=== PATIENT | female | born 1995 | race Two or more races ===

== ENCOUNTER 2021-09-27 08:45 | Outpatient (CLI) | payer OTHER | END 2021-09-27 08:49 | disposition home or self-care (01) | LOC: LAB 08:45 | DX: E03.8 Other specified hypothyroidism (principal); C73 Malignant neoplasm of thyroid gland ==

== ENCOUNTER 2022-03-09 08:51 | Outpatient (CLI) | payer OTHER ==
[2022-03-10] MEDS ORDERED: SYNTHROID50 MCG PO (08:50)
== END 2022-03-09 08:56 | disposition home or self-care (01) ==
LOC: SONOGRAMA 08:51
DX: E04.1 Nontoxic single thyroid nodule (principal)

== ENCOUNTER 2022-03-10 08:37 | Emergency (ER) | payer OTHER ==
[~2022-03-10] VITALS: Ht 170.2 cm; Wt 82.6 kg
[2022-03-10] MEDS ORDERED: SYNTHROID50 MCG PO (08:50)
== END 2022-03-10 12:22 | disposition home or self-care (01) ==
LOC: ER 08:37
DX: J10.1 Influenza due to other identified influenza virus with other respiratory manifestations (principal); Z20.822 Contact with and (suspected) exposure to COVID-19; E03.9 Hypothyroidism, unspecified

== ENCOUNTER → 2022-04-06 | Emergency (ER) | payer OTHER ==
[~2022-04-06] MED LIST: SYNTHROID50 MCG PO
== END | disposition home or self-care (01) ==
LOC: EMR PED 09:20
DX: J10.1 Influenza due to other identified influenza virus with other respiratory manifestations (principal); E03.9 Hypothyroidism, unspecified